=== PATIENT | female | born 1990 | race Two or more races ===

== ENCOUNTER 2024-09-07 20:35 | Emergency (ER) | payer MEDICAID, OTHER ==
[~2024-09-07] VITALS: Ht 175.3 cm; Wt 110.2 kg
[2024-09-07 20:52] VITALS: BP 128/76; PULSE 94; RESP 18; TEMP 98; O2SAT 96
--- NOTE | 2024-09-07 21:01 | ED.PDOC ---
History of Present Illness(SKN HPI Comments HERE FOR RED ELEVATED RASH TO TRUCK RADIATING UP TO NECK X DAY. PATIENT STATES SHE IS 27 WEEKS . FEVERS, CHILLS, NAUSEA, VOMITING, DYSURIA, FREQUENCY IN URINATION, ABDOMINAL PAIN, SPOTTING OR VAGINAL BLEEDING Chief Complaint: Rash Time Seen by MD: 20:56 History of Present Illness: Nurses Notes, Medications, Allergies Allergies: Coded Allergies: NO KNOWN ALLERGIES (Unverified , 09/07/24) Home Meds Active Scripts Diphenhydramine Hcl (Benadryl Allergy) 25 Mg Cap, 1 CAP PO TID PRN for 5 Days, #15 CAP Prov:DEBIHAILEY SEC REPORTING CONSULTANT 09/07/24 Famotidine (PEPCID TABLET) 20 Mg Tb, 1 TAB PO BID for 7 Days, #14 TAB Prov:HAILEY CARRERA SEC REPORTING CONSULTANT 09/07/24 Information Source: Patient Mode of Arrival: Ambulatory Past Medical History PAST MEDICAL HISTORY: Denies Surgical History: Denies all surgeries FAMILY RESOURCE MANAGEMENT PROFESSOR History: No Pertinent FAMILY RESOURCE MANAGEMENT PROFESSOR History Family History Family History: Reviewed,noncontributory to illness Social History Smoker: Non-Smoker Alcohol: Denies ETOH Use Drugs: Denies Drug Use Constitutional: denies: chills, diaphoresis, fatigue, fever, malaise, sweats, weakness, others EENTM: denies: blurred vision, double vision, ear bleeding, ear discharge, ear drainage, ear pain, ear ringing, eye pain, eye redness, hearing loss, mouth pain, mouth swelling, nasal discharge, nose bleeding, nose congestion, nose pain, photophobia, tearing, throat pain, throat swelling, voice changes, others Respiratory: denies: cough, hemoptysis, orthopnea, SOB at rest, shortness of breath, SOB with excertion, stridor, wheezing, others Cardiovascular: denies: chest pain, dizzy spells, diaphoresis, Dyspnea on exertion, edema, irregular heart beat, left arm pain, lightheadedness, palpitations, PND, syncope, others Gastrointestinal: denies: abdomen distended, abdominal pain, blood streaked bowels, constipated, diarrhea, dysphagia, difficulty swallowing, hematemesis, melena, nausea, poor appetite, poor fluid intake, rectal bleeding, rectal pain, vomiting, others Genitourinary: denies: abnormal vagina bleeding, burning, dyspareunia, dysuria, flank pain, frequency, hematuria, incontinence, pain, , vagina discharge, urgency, others Neurological: denies: dizziness, fainting, headache, left sided numbness, left sided weakness, numbness, paresthesia, pre-existing deficit, right sided numbness, right sided weakness, seizure, speech problems, tingling, tremors, weakness, others Musculoskeletal: denies: back pain, gout, joint pain, joint swelling, muscle pain, muscle stiffness, neck pain, others Integumetry: reports: rash; denies: bruises, change in color, change in hair/nails, dryness, laceration, lesions, lumps, wounds, others Allergic/Immunocompromised: denies: Difficulty Healing, Frequent Infections, Hives, Itching, others Hematologic/Lymphatic: denies: anemia, blood clots, easy bleeding, easy bruising, swollen glands, others Endocrine: denies: excessive hunger, excessive sweating, excessive thirst, excessive urination, flushing, intolerance to cold, intolerance to heat, unexp lained weight gain, unexplained weight loss, others Psychiatric: denies: anxiety, bipolar disorder, depression, hopeless, panic disorder, schizophrenia, sleepless, suicidal, others Physical Exam General Appearance: No Apparent Distress, Normal HEENT: Normal ENT Inspection, Pharynx Normal, TMs Normal Neck: Full Range of Motion, Non-Tender Respiratory: Lungs Clear, No Respiratory Distress, Normal Breath Sounds Cardiovascular: No Edema, No JVD, No Murmur, No Gallop, Normal Peripheral Pulses, Regular Rate/Rhythm Breast Exam: Deferred Gastrointestinal: No Organomegaly, Non Tender, No Pulsatile Mass, Normal Bowel Sounds, Soft Genitalia: Deferred Pelvic: Deferred Rectal: Deferred Extremities: Normal capillary refill, Normal inspection, Normal range of motion, Non-tender, No pedal edema Musculoskeletal : Apperance: Normal Neurologic: Alert, superintendent of generation II-XII nml as Tested, No Motor Deficits, Normal Affect, Normal Mood, No Sensory Deficits Cerebellar Function: Normal Reflexes: Normal Skin: Dry, Normal Color, Rash (ERYTHEMIC PAPULAR RASH NOTED ON CHEST AND ANTERIOR NECK NO NOTED EXCORIATIONS LESIONS OR OPEN WOUNDS OR DRAINAGE.), Warm Lymphatic: No Adenopathy Was a procedure done? Was a procedure done?: No Differential Diagnosis (INTG) Differential Diagnosis: Candidiasis, Cellulitis, Erythema multiforme, Herpes Zoster/Simplex, Impetigo, Scabies X-Ray, Labs, Meds, VS Vital Signs Date Time Temp Pulse Resp B/P (MAP) Pulse Ox O2 Delivery O2 Flow Rate FiO2 09/07/24 20:52 Room Air 09/07/24 20:52 98.0 94 18 128/76 (93) 96 98.0 09/07/24 20:52 98.0 94 18 128/76 (93) 96 Current Medications Medications (Trade) Dose Ordered Sig/Ritesh Route Start Time Stop Time Status Last Admin Sodium Chloride 1,000 ml @ 1,000 mls/hr Q1H ONCE IV 09/07/24 21:30 09/07/24 22:29 DC 09/07/24 21:52 Famotidine (Pepcid Injection) 20 mg ONCE ONCE IV 09/07/24 21:45 09/07/24 21:46 DC 09/07/24 21:52 Diphenhydramine HCl (Benadryl Injection) 25 mg ONCE ONCE IV 09/07/24 23:00 09/07/24 23:01 DC 09/07/24 23:01 X-Ray, Labs, Meds, VS Comment PATIENT BOLUSED NORMAL SALINE 1000 ML GIVEN PEPCID 20 MG IV AND BENADRYL 25 MG IV SHE REPORTS IMPROVEMENT IN RASH AND ITCHING REQUESTING DISCHARGE AT THIS TIME. WE WILL SCRIPT PEPCID 20 MG TWICE DAILY FOR 5 DAYS ALSO BENADRYL 25 MG TWICE DAILY NEEDED FOR RASH OR ITCHING ADVISED DRIVING WHILE ON BENADRYL. FOLLOW UP WITH YOUR PCP AND OB WITHIN 1-2 DAYS INCREASE P.O. FLUIDS WITH ELECTROLYTES ER RETURN PRECAUTIONS GIVEN PATIENT INDICATES UNDERSTANDING AND AGREES WITH DISCHARGE PLAN OF CARE. Time of 1ST Reevaluation: 22:42 Reevaluation 1ST: Improved Patient Education/Counseling: Diagnosis, Treatment, Prognosis, Need For Follow Up Family Education/Counseling: No Family Present Departure 1 Departure Time of Disposition: 22:42 Impression: Primary Impression: Allergic reaction Qualified Codes: T78.40XA - Allergy, unspecified, initial encounter Disposition: HOME / SELF CARE / HOMELESS Condition: Stable e-Prescriptions Diphenhydramine Hcl (Benadryl Allergy) 25 Mg Cap 1 CAP PO TID PRN for 5 Days, #15 CAP Prov: HAILEY CARRERA SEC REPORTING CONSULTANT 09/07/24 Famotidine (PEPCID TABLET) 20 Mg Tb 1 TAB PO BID for 7 Days, #14 TAB Prov: HAILEY CARRERA 09/07/24 Discharged With: Self Critical Care Note Critical Care Time?: No Stability Stability form required: HAILEY Sanchez Sep 07, 2024 21:01
[2024-09-07] MEDS: SODIUM CHLORIDE 0.9% 1,000 ML IV ONE (21:52)
[2024-09-07] MEDS: FAMOTIDINE (10MG/ML) 2ML VL IV ONE (21:52)
[2024-09-07] MEDS: diphenhdrAMINE HCL 50 MG/1 ML VL IV ONE (23:01)
[2024-09-07] MEDS ORDERED: FAMO20TA10 PO (23:23)
[2024-09-07] MEDS ORDERED: DIPH25CA66 PO (23:23)
== END 2024-09-07 23:40 | disposition home or self-care (01) ==
LOC: ER 20:35
DX: T78.40XA Allergy, unspecified, initial encounter (principal); O26.893 Other specified pregnancy related conditions, third trimester; Z79.899 Other long term (current) drug therapy; Z3A.29 29 weeks gestation of pregnancy; X58.XXXA Exposure to other specified factors, initial encounter
CPT/HCPCS: 96361; 96374; 96375; 99284; J1200; J3490; J7030